=== PATIENT | male | born 2005 | race Caucasian/White ===

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

== ENCOUNTER → 2024-01-30 09:19 | Outpatient (BNVA) | payer OTHER, SELFPAY | PROVIDERS: PCP Family Medicine; Visit Provider Nurse Practitioner Psychiatric/Mental Health | DX: Z51.81 Encounter for therapeutic drug level monitoring (principal); Z79.899 Other long term (current) drug therapy | CPT/HCPCS: 80053; 80183 ==

== ENCOUNTER → 2024-05-23 09:28 | Outpatient (BNVA) | payer MEDICARE, MEDICAID, OTHER, SELFPAY | PROVIDERS: PCP Family Medicine; Visit Provider Nurse Practitioner Psychiatric/Mental Health | DX: Z51.81 Encounter for therapeutic drug level monitoring (principal) | CPT/HCPCS: 80183 ==

== ENCOUNTER → 2024-12-31 07:50 | Outpatient (BNVA) | payer MEDICARE, MEDICAID, SELFPAY | PROVIDERS: PCP Family Medicine; Visit Provider Specialist | DX: G40.909 Epilepsy, unspecified, not intractable, without status epilepticus (principal); R03.0 Elevated blood-pressure reading, without diagnosis of hypertension | CPT/HCPCS: 99213 ==

== ENCOUNTER → 2025-03-07 09:53 | Outpatient (BNVA) | payer MEDICARE, MEDICAID, SELFPAY | PROVIDERS: PCP Family Medicine; Visit Provider Nurse Practitioner Psychiatric/Mental Health | DX: Z79.899 Other long term (current) drug therapy (principal); Z51.81 Encounter for therapeutic drug level monitoring | CPT/HCPCS: 80053; 80061; 80183; 83036; 85025 ==